=== PATIENT | female | born 1935 | race Caucasian/White ===

== ENCOUNTER → 2019-05-01 08:37 | Outpatient (CLI) | payer MEDICARE, OTHER ==
[~2019-05-01 08:37] MED LIST: ACETAMINOPHEN500 M1 PO; ASPERCREME 5 OZ5 OZ TOPICAL; COLACE100 MG PO; COZAAR50 MG PO; FLORAJEN3 CAPS460 MG PO; IPRAT-ALBUT 0.5-3 ML UPD; K-DUR20 MEQ PO; LEVO-T88 MCG PO; LINZESS145 MCG PO; MAG-OX 400 MG400 MG PO; MEGESTROL; MILK OF MAGNESI30 ML PO; NORVASC5 MG PO; OS-CAL500 MG PO; POTASSIUM CL ER 10 M PO; SENNA LAXATIVE8.6 MG PO; VIBRAMYCIN 100100 MG PO
[2019-05-04 12:55] VITALS: BMI 18.7
== END | disposition home or self-care (01) ==
LOC: D.CT 08:37
PROVIDERS: ATTEND Family Medicine
DX: R91.8 Other nonspecific abnormal finding of lung field (principal)

== ENCOUNTER 2019-05-01 18:08 | Inpatient (IN) | payer MEDICARE, OTHER ==
[~2019-05-01] VITALS: Ht 162.6 cm; Wt 50.1 kg
--- NOTE | 2019-05-01 18:54 | NUR ---
PT HERE AFTER HAVING OUTPATIENT CT SCAN THIS MORNING WITH ABNORMAL RESULT. PT HAS NO COMPLAINT AT THIS TIME.
[2019-05-01 19:00] VITALS: BP 166/80
[2019-05-01 19:24] LABS: BASOPHILS 0.4 % (0-2); EOSINOPHILS 1.2 % (0-7); HEMATOCRIT 29.9 % (36.0-48.0); HEMOGLOBIN 9.8 g/dL (12-16); IMMATURE GRANULOCYTES 0.3 % (0-5); LYMPHOCYTES 17.6 % (15-50); MCH 27.6 pg (26.0-34.0); MCHC 32.8 g/dL (31.0-37.0); MCV 84.2 fL (80.0-100.0); MONOCYTES 10.9 % (2-11); NEUTROPHILS 69.6 % (40-80); PLATELET COUNT 429 10x3/uL (130-400); RBC 3.55 10x6/uL (4.00-5.40); RDW 13.9 % (11.5-14.5); WBC 11.2 10x3/uL (4.8-10.8)
[2019-05-01 19:36] LABS: APTT 41.1 SECONDS (22.8-39.4); INR 1.05 (0.85-1.17); PROTIME 13.2 SECONDS (11.6-15.0)
[2019-05-01 19:46] LABS: ALBUMIN 2.7 g/dL (3.4-5.0); ALKALINE PHOSPHATASE 113 U/L (46-116); ALT (SGPT) 15 U/L (10-68); BILIRUBIN - TOTAL 0.17 mg/dL (0.2-1.3); CALC OSMOLALITY 267 mosm/kg (275-300); CALCIUM 8.3 mg/dL (8.5-10.1); CARBON DIOXIDE 27.8 mmol/L (21.0-32.0); CHLORIDE - SERUM 97 mmol/L (98-107); CREATININE - SERUM 0.8 mg/dL (0.6-1.3); GLUCOSE 121 mg/dL (74-106); POTASSIUM - SERUM 3.6 mmol/L (3.5-5.1); PROTEIN - SERUM 7.3 g/dL (6.4-8.2); SODIUM 133 mmol/L (136-145); UREA NITROGEN 14 mg/dL (7-18); eGFR NON AFRICAN AMERICAN 72 mL/min (90-120)
[2019-05-01 19:55] VITALS: BP 176/77
[2019-05-01 19:58] LABS: CKMB 0.7 U/L (0.0-3.6); CREATINE KINASE 27 UL (21-215); TROPONIN-I 0.018 ng/mL (0.000-0.060)
--- NOTE | 2019-05-01 20:13 | NUR ---
RASHID CONTACT INFORMATION: KALYANI GUZMÁN [phone]
--- NOTE | 2019-05-01 20:23 | NUR ---
UNABLE TO URINATE AT THIS TIME. PROVIDED GATORADE WILL CHECK AGAIN FOR URINE.
--- NOTE | 2019-05-01 21:35 | NUR ---
ADMITTED TO ROOM FROM ER ALERT, PEROIDS OF CONFUSION, ORIENTIATED TO ROOM FALL PRECAUTIONS IN PLACE, SEE SHIFT ASSESSMENT, CALL LIGHT IN REACH
[2019-05-01 22:30] VITALS: BP 148/66
[2019-05-02] MEDS ORDERED: LEVO-T88 MCG PO (01:27)
[2019-05-02] MEDS ORDERED: COZAAR50 MG PO (01:30)
[2019-05-02] MEDS ORDERED: MEGESTROL (01:30)
[2019-05-02] MEDS ORDERED: LINZESS145 MCG PO (01:32)
[2019-05-02] MEDS ORDERED: NORVASC5 MG PO (01:32)
[2019-05-02] MEDS ORDERED: POTASSIUM CL ER 10 M PO (01:33)
[2019-05-02] MEDS ORDERED: MAG-OX 400 MG400 MG PO (01:36)
[2019-05-02] MEDS ORDERED: MILK OF MAGNESI30 ML PO (01:37)
[2019-05-02] MEDS ORDERED: SENNA LAXATIVE8.6 MG PO (01:38)
[2019-05-02] MEDS ORDERED: ACETAMINOPHEN500 M1 PO (01:40)
[2019-05-02] MEDS ORDERED: ASPERCREME 5 OZ5 OZ TOPICAL (01:43)
[2019-05-02] MEDS ORDERED: OS-CAL500 MG PO (01:47)
[2019-05-02] MEDS ORDERED: COLACE100 MG PO (01:48)
[2019-05-02 01:49] VITALS: BP 152/61
[2019-05-02 03:30] LABS: APPEARANCE CLEAR (CLEAR); BILIRUBIN NEGATIVE (NEGATIVE); COLOR YELLOW (YELLOW); GLUCOSE NEGATIVE (NEGATIVE); KETONE NEGATIVE (NEGATIVE); NITRITE NEGATIVE (NEGATIVE); PROTEIN NEGATIVE (NEGATIVE); SPECIFIC GRAVITY 1.005 (1.005-1.020); UROBILINOGEN NORMAL (NORMAL)
[2019-05-02 04:00] VITALS: BP 154/76
[2019-05-02 06:30] LABS: BASOPHILS 0.3 % (0-2); EOSINOPHILS 1.3 % (0-7); HEMATOCRIT 26.5 % (36.0-48.0); HEMOGLOBIN 8.5 g/dL (12-16); IMMATURE GRANULOCYTES 0.2 % (0-5); LYMPHOCYTES 19.2 % (15-50); MCH 26.9 pg (26.0-34.0); MCHC 32.1 g/dL (31.0-37.0); MCV 83.9 fL (80.0-100.0); MEAN PLATELET VOLUME 9.2 fL (7.4-10.4); MONOCYTES 10.2 % (2-11); NEUTROPHILS 68.8 % (40-80); PLATELET COUNT 402 10x3/uL (130-400); RBC 3.16 10x6/uL (4.00-5.40); RDW 14.1 % (11.5-14.5); WBC 10.3 10x3/uL (4.8-10.8)
[2019-05-02 06:54] LABS: CALC OSMOLALITY 263 mosm/kg (275-300); CALCIUM 8.2 mg/dL (8.5-10.1); CARBON DIOXIDE 25.3 mmol/L (21.0-32.0); CHLORIDE - SERUM 98 mmol/L (98-107); CREATININE - SERUM 0.7 mg/dL (0.6-1.3); GLUCOSE 105 mg/dL (74-106); SODIUM 132 mmol/L (136-145); UREA NITROGEN 11 mg/dL (7-18); eGFR NON AFRICAN AMERICAN 85 mL/min (90-120)
[2019-05-02 08:00] VITALS: BP 166/66
[2019-05-02 12:04] VITALS: BP 175/73
--- NOTE | 2019-05-02 15:30 | NUR ---
RETURNED TO ROOM VIA BED FROM SURGERY. PT IS A/A/OX3. CHEST TUBE INTACT TO LEFT UNDERARM. SMALL AMT THICK BEIGE COLORED DRAINAGE IN TUBE. VS STABLE.
--- NOTE | 2019-05-02 16:13 | NUR ---
CT TUBE INTACT. CALL LIGHT IN REACH. ISOLATION CONT. CALL LIGHT IN REACH. WILL MONITOR NEEDS.
[2019-05-02 17:14] LABS: PROTEIN - BODY FLUID 1.6 G/DL
--- NOTE | 2019-05-02 18:28 | NUR ---
ATTEMPTED TO RUN IN 500CC OF 2.5% DEFLEX WITH 1000 UNITS HEPARIN. ONLY 100 CC RAN IN AND THEN STOPPED DUE TO PT C/O INCREASED PAIN AND STOPPED INFUSING. PAGE PUT IN TO SHANEL TO INFORM HER.
[2019-05-02 20:00] VITALS: BP 151/63
--- NOTE | 2019-05-02 20:00 | NUR ---
ALERT RESTING IN BED, CHEST TUBE TO LEFT AXILLARY DRAINING THICK GAYTAN FLUID, DRESSING INTACT, DENIES PAIN OR NEEDS, SEE SHIFT ASSESSMENT CALL LIGHT IN REACH, FALL PRECAUTIONS IN PLACE
[2019-05-03] VITALS: BP 146/66
[2019-05-03 05:40] LABS: BASOPHILS 0.3 % (0-2); EOSINOPHILS 0.6 % (0-7); HEMATOCRIT 26.5 % (36.0-48.0); HEMOGLOBIN 8.6 g/dL (12-16); IMMATURE GRANULOCYTES 0.3 % (0-5); LYMPHOCYTES 17.9 % (15-50); MCHC 32.5 g/dL (31.0-37.0); MCV 83.3 fL (80.0-100.0); MEAN PLATELET VOLUME 9.3 fL (7.4-10.4); MONOCYTES 9.8 % (2-11); NEUTROPHILS 71.1 % (40-80); PLATELET COUNT 388 10x3/uL (130-400); RBC 3.18 10x6/uL (4.00-5.40)
[2019-05-03 05:47] LABS: ALBUMIN 2.1 g/dL (3.4-5.0); ALKALINE PHOSPHATASE 84 U/L (46-116); ALT (SGPT) 14 U/L (10-68); BILIRUBIN - TOTAL 0.23 mg/dL (0.2-1.3); CALC OSMOLALITY 266 mosm/kg (275-300); CALCIUM 7.7 mg/dL (8.5-10.1); CARBON DIOXIDE 26.3 mmol/L (21.0-32.0); CHLORIDE - SERUM 99 mmol/L (98-107); CREATININE - SERUM 0.7 mg/dL (0.6-1.3); GLUCOSE 102 mg/dL (74-106); PROTEIN - SERUM 6.6 g/dL (6.4-8.2); SODIUM 134 mmol/L (136-145); UREA NITROGEN 11 mg/dL (7-18); eGFR NON AFRICAN AMERICAN 85 mL/min (90-120)
[2019-05-03 06:21] LABS: POTASSIUM - SERUM 2.8 mmol/L (3.5-5.1)
--- NOTE | 2019-05-03 06:34 | NUR ---
ABNORMAl LAB POTASSIUM 2.8 CALLED TO JENNIFER WITH DR CARRERA OFFICE STATES WILL TEXT TO DR CARRERA NOW
[2019-05-03 09:51] VITALS: BP 153/70
[2019-05-03 13:10] LABS: FUNGUS STAIN Final report (())
[2019-05-03 13:57] VITALS: BP 184/79
[2019-05-03 15:10] LABS: AFB SPECIMEN PROCESSING Concentration (())
[2019-05-03 17:30] VITALS: BP 156/81
--- NOTE | 2019-05-03 19:10 | NUR ---
BEDSIDE REPORT RECEIVED FROM DAY SHIFT, PT CARE ASSUMED. INTRODUCED SELF AND WROTE NAME ON BOARD, PT AWAKE AND ALERT, ON BEDSIDE COMMODE AND ASSISTED BACK TO BED WITH VENEER SAMPLE MAKER. DENIES ANY NEEDS AT THIS TIME. BED IN LOWEST POSITION, SR X2, CALL LIGHT WITHIN REACH. WILL CONTINUE TO MONITOR.
[2019-05-03 20:00] VITALS: BP 155/68
[2019-05-04] VITALS: BP 141/68
[2019-05-04 04:00] VITALS: BP 136/66
[2019-05-04 06:57] LABS: BASOPHILS 0.2 % (0-2); EOSINOPHILS 0.6 % (0-7); HEMATOCRIT 26.6 % (36.0-48.0); HEMOGLOBIN 8.5 g/dL (12-16); IMMATURE GRANULOCYTES 0.1 % (0-5); LYMPHOCYTES 18.4 % (15-50); MCH 26.8 pg (26.0-34.0); MCV 83.9 fL (80.0-100.0); MEAN PLATELET VOLUME 9.4 fL (7.4-10.4); MONOCYTES 11.9 % (2-11); NEUTROPHILS 68.8 % (40-80); PLATELET COUNT 381 10x3/uL (130-400); RBC 3.17 10x6/uL (4.00-5.40); RDW 14.3 % (11.5-14.5); WBC 8.8 10x3/uL (4.8-10.8)
[2019-05-04 07:16] LABS: ALBUMIN 2.2 g/dL (3.4-5.0); ALKALINE PHOSPHATASE 83 U/L (46-116); ALT (SGPT) 11 U/L (10-68); BILIRUBIN - TOTAL 0.31 mg/dL (0.2-1.3); CALC OSMOLALITY 268 mosm/kg (275-300); CALCIUM 7.9 mg/dL (8.5-10.1); CARBON DIOXIDE 25.8 mmol/L (21.0-32.0); CHLORIDE - SERUM 103 mmol/L (98-107); CREATININE - SERUM 0.7 mg/dL (0.6-1.3); GLUCOSE 108 mg/dL (74-106); MAGNESIUM - SERUM 1.5 mg/dL (1.8-2.4); PHOSPHOROUS 3.1 mg/dL (2.5-4.9); PROTEIN - SERUM 6.6 g/dL (6.4-8.2); SODIUM 134 mmol/L (136-145); UREA NITROGEN 12 mg/dL (7-18); eGFR NON AFRICAN AMERICAN 85 mL/min (90-120)
[2019-05-04 07:19] LABS: POTASSIUM - SERUM 2.8 mmol/L (3.5-5.1)
--- NOTE | 2019-05-04 07:25 | NUR ---
ROUNDING DONE WITH PATIENT IN AIRBORNE ISOLATION. LEFT POSTERIOR CHEST TUBE SEEN TO WALL WITH NO SUCTION ON. I REVIEWED THE CHART AND DO NOT SEE ANY ORDER FOR SUCTION. CALL PLACED TO OLE MANLEY RN IN IR FOR GUIDANCE. ON ROOM AIR. RIGHT WRIST PIV SEEN WITH 1/2 NS INFUSING AT 20. PATIENT IS WANTING HER HOME MEDS. WILL CALL DR KURTZ AND SEE ABOUT RE-STARTING THEM. ON EP, K+ IS 2.8, WILL COVER WITH ORAL SUPPLEMENTS. OLE TO CALL ME BACK AND STATE HE IS NOT HYDROELECTRIC PLANT ELECTRICIAN THIS AM. HE GAVE ME LILO'S NUMBER TO CALL [phone]. I CALLED HER AND SHE IS GOING TO FIND OUT AND LET ME KNOW.
--- NOTE | 2019-05-04 07:58 | NUR ---
PATEL, RN IN WITH MYSELF TALKING TO PATIENT AND SPOUSE R/T HOME MEDS PATEL HAD HER YESTERDAY. THEY ARE TOLD THAT DR MENDOSA WANTED TO GIVE HER ANOTHER DAY OF REST FROM THE [facility] BEFORE STARTING HOME MEDS. IS WANTING A SWALLOW EVAL DONE HE THINKS SHE HAS PROBLEMS SWALLOWING IN THE PAST, BUT HE WANTS TO FEED HER BREAKFAST.
[2019-05-04 08:00] VITALS: BP 161/68
--- NOTE | 2019-05-04 09:41 | MORECARE ---
CASE MANAGEMENT DISCHARGE SUMMARY PATIENT: CHE GUZMÁN UNIT: [id number] ADM DATE: 05/01/19 AGE: 83 : 35 SEX: F ROOM/BED: D.2101 AUTHOR: DEXTER ESCALERA PHYSICIAN: REFERRING PHYSICIAN: KALEE NICOLE MD DATE OF SERVICE: 05/04/19 Discharge Plan Patient Name: CHE GUZMÁN Facility: [facility]:[place] : 1935 Planned Disposition: Anticipated Discharge Date: Discharge Date: Expected LOS: Initial Reviewer: [id number] Initial Review Date: 05/04/2019 Generated: 05/04/19 10:41 am Comments DCP- Discharge Planning Updated by [id number]: Arlyn Goodrich on 05/04/19 8:[address] Patient Name: CHE GUZMÁN Admission Status: ER Accout number: [id number] Admission Date: 05-01-2019 : 1935 Admission Diagnosis: Attending: KALEE NICOLE Current LOS: 3 Anticipated DC Date: Planned Disposition: Primary Insurance: MEDICARE A & B Discharge Planning Comments: PATIENT IS FROM [facility] WHERE SHE IS A RESIDENT. Guest Relations Representative: Arlyn Goodrich Patient Name: CHE GUZMÁN Page [phone] at 0941 All edits/amendments must be made on the electronic document DICTATION DATE: 05/04/19939 METAPHYSICIAN: ANAIS 05/04/19939 RPT#: [id number] DC DATE: STATUS: ADM IN [facility] [address] [place] [address] END OF REPORT
[2019-05-04 12:00] VITALS: BP 157/70
[2019-05-04 12:55] VITALS: Ht 162.6 cm; Wt 50.1 kg
--- NOTE | 2019-05-04 15:00 | NUR ---
BEDSIDE SWALLOW EVALUYATION DONE.
--- NOTE | 2019-05-04 15:45 | NUR ---
CALLED TO ROOM PER PATIENT WITH REQUEST OF TURNING AIR ON". I LOWERED THE TEMP TO 70 AND TRIED TO EXPLAIN ABOUT NOT BEING ABLE TO LEAVE THE DOORS OPEN R/T AIRBORNE ISOLATION. SHE IS UPSET WITH THIS.
[2019-05-04 16:00] VITALS: BP 174/73
--- NOTE | 2019-05-04 16:50 | NUR ---
EVENING ROUNDS COMPLETE, PT SITTING UP IN BED, AAO X4. NO SIGNS OF DISTRESS. PT DENIES ANY PAIN AT THIS TIME. CL IN REACH, BED IN LOWEST POSITION. CONT WITH POC.
--- NOTE | 2019-05-04 18:15 | NUR ---
RESP IN ROOM FOR UPDRAFT TREATMENT. PATIENT DENIES NEEDS AT THIS TIME. WILL CONTINUE TO MONITOR. STILL IN AIRBORNE ISOLATION.
--- NOTE | 2019-05-04 18:37 | NUR ---
RE-DRAW OF POTSSIUM WITH RESULT OF 3.7.
[2019-05-04 20:00] VITALS: BP 150/62
[2019-05-05] VITALS: BP 154/62
[2019-05-05 04:30] VITALS: BP 142/68
--- NOTE | 2019-05-05 06:17 | NUR ---
PT C/O PAIN AT SITE OF CHEST TUBE. WHEN OFFERED PRN PAIN MED, PT DENIED PAIN OR NEED FOR MEDICATION.
[2019-05-05 06:40] LABS: ANION GAP 13.2 mmol/L (8-16); CALCIUM 8.7 mg/dL (8.5-10.1); CARBON DIOXIDE 23.6 mmol/L (21.0-32.0); CREATININE - SERUM 0.8 mg/dL (0.6-1.3); MAGNESIUM - SERUM 1.5 mg/dL (1.8-2.4); PHOSPHOROUS 2.6 mg/dL (2.5-4.9); POTASSIUM - SERUM 3.8 mmol/L (3.5-5.1)
[2019-05-05 06:54] LABS: BASOPHILS 0.4 % (0-2); EOSINOPHILS 1.7 % (0-7); HEMATOCRIT 30.3 % (36.0-48.0); HEMOGLOBIN 9.5 g/dL (12-16); IMMATURE GRANULOCYTES 0.2 % (0-5); LYMPHOCYTES 25.4 % (15-50); MCH 27.5 pg (26.0-34.0); MCHC 31.4 g/dL (31.0-37.0); MCV 87.6 fL (80.0-100.0); MEAN PLATELET VOLUME 9.6 fL (7.4-10.4); MONOCYTES 10.6 % (2-11); NEUTROPHILS 61.7 % (40-80); PLATELET COUNT 448 10x3/uL (130-400); RBC 3.46 10x6/uL (4.00-5.40); RDW 14.4 % (11.5-14.5); WBC 9.6 10x3/uL (4.8-10.8)
--- NOTE | 2019-05-05 07:08 | NUR ---
ROUNDING DONE WITH PATIENT BEING GIVEN MAG OX 400 MG FOR EP, MAG 1.5. K+ IS 3.8. ON ROOM AIR. LEFT POSTERIOR IR CHEST TUBE SEEN AT 20 CM LOW SUCTION. NO AIR LEAK SEEN. RIGHT WRIST PIV WITH 1/2 NS INFUSING AT 20 CC/HR. IN AIRBORNE ISOLATION STILL. SPOUSE HERE AND UPDATED TO LAST NIGHT R/T PATIENT THINKING SHE HAD SURGERY YESTERDAY AND REFUSING PAIN MEDICATION WHEN SHE ASKED FOR IT AND IT WAS BROUGHT IN.
--- NOTE | 2019-05-05 07:47 | NUR ---
REVIEWING THE RESP CULTURES AND GRAM STAIN EVERYTHING IS SHOWING FEW COLONIES OF GROWTH CONSISTENT WITH NORMAL RESP JD. I CALLED AGGIE PIÑA IN INFECTION CONTROL AND SHE IS OUT OF THE OFFICE TILL 05/09. I LEFT WORD WITH ROSETTA CRUZ [facility] TO PLEASE CALL ME.
[2019-05-05 08:20] VITALS: BP 171/74
--- NOTE | 2019-05-05 08:53 | NUR ---
ANTHONY FROM INFECTION CONTR[facility] TO CALL AND IS GOING TO TALK TO THE SPOUSE AND PATIENT ON STILL HAVING TO WAIT ON RESULTS. WE ARE HOPING THAT SHE CAN DROP TO DROPLET AND BE ABLE TO LEAVE THE DOOR OPEN.
--- NOTE | 2019-05-05 11:55 | NUR ---
Educated the patient and on the need Airborne Isolation, advised will follow with lab and Pulmonology on pending TB test results.
--- NOTE | 2019-05-05 11:58 | NUR ---
DR KURTZ IN ROOM AT THIS TIME TO SEE PATIENT.
[2019-05-05 12:13] VITALS: BP 184/87
--- NOTE | 2019-05-05 12:14 | NUR ---
ANTHONY WITH INFECTION CONTROL HERE TO TELL ME THAT SHE HAS TALKED TO DR MENDOSA AND PATIENT CAN NOW BE IN DROPLET ISOLATION.
--- NOTE | 2019-05-05 14:46 | NUR ---
OLE MANLEY RN WITH IR IN TO SEE PATIENT. NO OUTPUT IN CHEST TUBE CANISTER. HE AND I BOTH CHECKED AND SUCTION IS PATENT AND NO AIR LEAK.
[2019-05-05 16:08] LABS: AFB SPECIMEN PROCESSING Concentration (())
[2019-05-05 16:14] VITALS: BP 187/75
--- NOTE | 2019-05-05 19:00 | NUR ---
EVENING ROUNDS COMPLETE, PT LAYING IN BED. NO SIGNS OF DISTRESS. PT DENIES ANY PAIN AT THIS TIME. AAOX4, VSS. CL IN REACH, BED IN LOWEST POSITION. CONT WITH POC.
[2019-05-05 20:00] VITALS: BP 148/64
[2019-05-06] VITALS: BP 169/77
[2019-05-06 04:00] VITALS: BP 172/76
[2019-05-06 05:12] LABS: BASOPHILS 0.7 % (0-2); EOSINOPHILS 4.6 % (0-7); HEMATOCRIT 30.1 % (36.0-48.0); HEMOGLOBIN 9.1 g/dL (12-16); IMMATURE GRANULOCYTES 0.1 % (0-5); LYMPHOCYTES 33.8 % (15-50); MCH 26.8 pg (26.0-34.0); MCHC 30.2 g/dL (31.0-37.0); MCV 88.5 fL (80.0-100.0); MEAN PLATELET VOLUME 9.4 fL (7.4-10.4); MONOCYTES 12.2 % (2-11); NEUTROPHILS 48.6 % (40-80); PLATELET COUNT 416 10x3/uL (130-400); RDW 14.8 % (11.5-14.5)
[2019-05-06 05:50] LABS: CALC OSMOLALITY 273 mosm/kg (275-300); CALCIUM 8.1 mg/dL (8.5-10.1); CARBON DIOXIDE 23.6 mmol/L (21.0-32.0); CHLORIDE - SERUM 103 mmol/L (98-107); CREATININE - SERUM 0.7 mg/dL (0.6-1.3); GLUCOSE 109 mg/dL (74-106); MAGNESIUM - SERUM 1.8 mg/dL (1.8-2.4); PHOSPHOROUS 3.1 mg/dL (2.5-4.9); SODIUM 136 mmol/L (136-145); THYROID STIMULATING HORMONE 2.42 uIU/mL (0.36-3.74); UREA NITROGEN 14 mg/dL (7-18); eGFR NON AFRICAN AMERICAN 85 mL/min (90-120)
[2019-05-06 05:57] LABS: POTASSIUM - SERUM 4.4 mmol/L (3.5-5.1)
--- NOTE | 2019-05-06 07:30 | NUR ---
A/A/OX4. DENIES ANY PAIN OR PROBLEMS AT THIS TIME AND VOICES NOT REQUESTS. SITTING UP IN BED TALKING WITH HER . ASSESSMENT COMPLETED. IV PATENT TO RIGHT HAND WITHOUT REDNESS OR EDEMA. WILL CONTINUE POC.
--- NOTE | 2019-05-06 10:12 | NUR ---
PULLED IV OUT TRYING TO GET UP TO BSC. RESTARTED IN RIGHT INNER FOREARM WITH 22 G X 2 ATTEMPTS. PT TOLERATED WELL.
--- NOTE | 2019-05-06 10:51 | NUR ---
I have reviewed this patient and I concur with the Shift Assessment completed by the Licensed Practical Nurse today this shift.
[2019-05-06 12:22] VITALS: BP 174/73
[2019-05-06 16:30] VITALS: BP 154/75
[2019-05-06 20:00] VITALS: BP 136/68
[2019-05-07] VITALS: BP 131/64
[2019-05-07 04:00] VITALS: BP 164/73
[2019-05-07 08:36] VITALS: BP 175/67
[2019-05-07 12:17] VITALS: BP 154/68
[2019-05-07 16:45] VITALS: BP 178/71
--- NOTE | 2019-05-07 16:50 | NUR ---
ALERT AND ORIENTED X4. SITTING UP IN BED EATING. [place]. CHECK DEPENDS FOR INCONTINENCE, DEPENDS DRY. DENIES ANY NEEDS AT THIS TIME. LT CHEST TUBE FREE FROM LEAKS. CONTINUE PLAN OF CARE AND SAFETY PRECAUTIONS.
--- NOTE | 2019-05-07 19:07 | NUR ---
RECIEVED BEDSIDE REPOT. UP IN BED WITH EYES OPEN AND TV ON. IV TO RIGHT FA SL.. REMAINS IN DROPLET ISOLATION. CHEST TUBE TO LEFT SIDE. DSG CDI. INCONTINENT OF URINE. PERIAREA ELMER. DENIES ANY NEEDS AT THIS TIME.
[2019-05-07 20:00] VITALS: BP 148/68
[2019-05-07 21:34] LABS: CREATININE - SERUM 0.7 mg/dL (0.6-1.3); VANCOMYCIN - TROUGH 14.8 ug/mL (10.0-20.0)
[2019-05-08] VITALS: BP 138/67
[2019-05-08 04:30] VITALS: BP 132/72
--- NOTE | 2019-05-08 04:46 | NUR ---
IV LEAKIND. STOPPED AND D/C'S. NO REDNESS OR SWELLING TO SITE. RESTARTED TO LEFT FA WITH 22 GA ATTEMPTS X1.
--- NOTE | 2019-05-08 07:25 | NUR ---
REPORT RECIEVED. PT SITTING UP IN BED. PT HAS A CHEST TUBE TO THE LEFT SIDE DRAINING BLOOD. SHE HAS A L FA PIV. RR EVEN AND UNLABORED. NO DISTRESS NOTED. BED LOCKED AND IN LOWEST POSITION, CALL LIGHT WITHIN REACH. WILL CTM
[2019-05-08 08:08] VITALS: BP 153/69
--- NOTE | 2019-05-08 13:43 | NUR ---
Nutrition Follow-up: reports increased PO intake but overall eating <50% of meals. Drinking 1-2 Ensure/day. Diet: Regular, Ensure TID, ice cream with meals Wt: 110# Last BM: 05/07 per Labs noted: Ca 8.1, Glu 109 Meds noted: Milk of Magnesia, KDur Continue current diet/supplement as tolerated. [place] food preferences. RD following.
[2019-05-08 16:13] VITALS: BP 174/79
--- NOTE | 2019-05-08 17:28 | NUR ---
I have reviewed this patient and I concur with the Shift Assessment completed by the Licensed Practical Nurse today this shift.
--- NOTE | 2019-05-08 19:12 | NUR ---
RECIEVEDE BEDSIDE REPORT. UP IN BED WITH EYES CLOSED. EASILY AROUSE TO VERBAL STIMULI. C/O BEING SLEEPY. IV TO LEFT FA WITH DSG CDI. NS INFUSING AT 30CC/HR. NO REDNESS OR SWELLING TO SITE.CHEST TUBE TO LEFT SIDE. DENIES ANY NEEDS AT THIS TIME.
[2019-05-08 20:00] VITALS: BP 159/64
[2019-05-08 21:41] VITALS: BP 159/64
[2019-05-09 00:30] VITALS: BP 160/58
[2019-05-09 07:35] VITALS: BP 161/75
[2019-05-09 11:07] VITALS: BP 163/66
[2019-05-09 15:15] VITALS: BP 129/60
--- NOTE | 2019-05-09 15:30 | NUR ---
ALERT AND ORIENTED X4. SITTING UP IN BED. PHYSICAL THERAPY ASSIST OOB AMBULATE 28 STEPS IN ROOM WITH WALKER. BED BATH AND LINEN CHANGE COMPLETE. OINTMENT APPLIED TO MAK AREA. DENIES ANY NEEDS AT THIS TIME. CONTINUE PLAN OF CARE AND SAFETY PRECAUTIONS.
--- NOTE | 2019-05-09 19:35 | NUR ---
BEDSIDE REPORT RECEIVED FROM DAY SHIFT, PT CARE ASSUMED. INTRODUCED SELF AND WROTE NAME ON BOARD. PT SITTING UP IN BED WATCHING TV, AAOX4. CALMOSEPTINE APPLIED TO EXCORIATED MAK AREA. DENIES ANY OTHER NEEDS AT THIS TIME. BED IN LOWEST POSITION, SR X2, CALL LIGHT WITHIN REACH. WILL CONTINUE TO MONITOR.
[2019-05-09 20:00] VITALS: BP 157/63
--- NOTE | 2019-05-09 20:31 | NUR ---
PT LYING IN BED WITH EYES CLOSED, RR EVEN AND NONLABORED, NO S/S OF DISTRESS, AROUSES EASILY TO VOICE. NIGHT TIME MEDS ADMINISTERED, PER ORDER. DENIES ANY OTHER NEEDS AT THIS TIME. BED IN LOWEST POSITION, SR X1, CALL LIGHT WITHIN REACH. WILL CONTINUE TO MONITOR.
[2019-05-10] VITALS: BP 160/72
[2019-05-10 04:00] VITALS: BP 140/60
[2019-05-10 08:00] VITALS: BP 146/61
[2019-05-10 13:59] VITALS: BP 149/64
[2019-05-10 17:19] VITALS: BP 159/69
--- NOTE | 2019-05-10 19:13 | NUR ---
RECIEVED BEDSIDE REPORT. LYING IN BED WITH EYES OPEN. ALERT AND ORIETNED X4. REQUIRES ASSIST TO TRANSFER OOB. IV TO LEFT FA SL.. DSG TO LEFT UPPER BACK CDI. DENIES ANY NEEDS AT THIS TIME. WILL CONT POC.
[2019-05-10 20:00] VITALS: BP 165/65
[2019-05-11] VITALS: BP 163/69
[2019-05-11 04:00] VITALS: BP 177/74
--- NOTE | 2019-05-11 09:38 | MORECARE ---
CASE MANAGEMENT DISCHARGE SUMMARY PATIENT: CHE GUZMÁN UNIT: [id number] ADM DATE: 05/01/19 AGE: 83 : 35 SEX: F ROOM/BED: D.2101 AUTHOR: DEXTER ESCALERA PHYSICIAN: REFERRING PHYSICIAN: KAYLA KURTZ MD DATE OF SERVICE: 05/11/19 Discharge Plan Patient Name: CHE GUZMÁN Facility: [facility]:[place] : 1935 Planned Disposition: Anticipated Discharge Date: Discharge Date: Expected LOS: Initial Reviewer: [id number] Initial Review Date: 05/04/2019 Generated: 05/11/19 10:37 am DCP- Discharge Planning Updated by [id number]: Arlyn Goodrich on 05/04/19 8:[address] Patient Name: CHE GUZMÁN Admission Status: ER Accout number: [id number] Admission Date: 05-01-2019 : 1935 Admission Diagnosis: Attending: KALEE NICOLE Current LOS: 3 Anticipated DC Date: Planned Disposition: Primary Insurance: MEDICARE A & B Discharge Planning Comments: PATIENT IS FROM [facility] WHERE SHE IS A RESIDENT. Solar Panel Installation Supervisor: Arlyn Goodrich External Providers External Provider: [facility] Next Contact Date: 05/11/2019 Service Request Date: Service Type: Resolution: Reviewer: Comments: Last DP export: 05/04/19 8:41 a Patient Name: CHE GUZMÁN Page [phone] at 0938 All edits/amendments must be made on the electronic document DICTATION DATE: 05/11/19936 ENVIRONMENTAL JOURNALIST: DM 05/11/19936 RPT#: [id number] DC DATE: STATUS: ADM IN [facility] [address] [place] [address] END OF REPORT
[2019-05-11 09:45] VITALS: BP 166/69
--- NOTE | 2019-05-11 09:53 | MORECARE ---
CASE MANAGEMENT DISCHARGE SUMMARY PATIENT: CHE GUZMÁN UNIT: [id number] ADM DATE: 05/01/19 AGE: 83 : 35 SEX: F ROOM/BED: D.2101 AUTHOR: LALI,DOC PHYSICIAN: REFERRING PHYSICIAN: KAYLA KURTZ MD DATE OF SERVICE: 05/11/19 Discharge Plan Patient Name: CHE GUZMÁN Facility: [facility]:[place] : 1935 Planned Disposition: Anticipated Discharge Date: Discharge Date: Expected LOS: Initial Reviewer: [email or web address] Initial Review Date: 05/04/2019 Generated: 05/11/19 10:53 am Comments DCP- Discharge Planning Updated by [id number]: Marlon Rollins on 05/11/19 8:[address] Patient Name: CHE GUZMÁN Encounter No: [id number] : 1935 Primary Insurance: MEDICARE A & B Anticipated DC Date: Planned Disposition: HALF-WAY FACILITY, [facility] External Planned Provider: [facility], [employer] MEDICAID BED DCP follow-up note: CM SPOKE TO BEDSIDE NURSE WHO NOTIFIED CM THAT PT'S PLAN IS TO DISCHARGE TODAY BACK TO [facility] WHERE SHE LIVES. CM MET WITH PT IN ROOM WHO REPORTS THE DOCTORS ARE SUPPOSED TO DISCHARGE HER HOME TO [facility] WHERE SHE LIVES. PT REPORTS ABILITY TO SIT FOR VAN TRANSPORT. PT REPORTS HER IS AWARE AND SHE NEEDS NO ASSISTANCE IN NOTIFYING FAMILY. IMPORTANT MESSAGE FROM MEDICARE PROVIDED AND EXPLAINED. CM FAXED REFERRAL INFORMATION TO [facility] AT [phone]. CM CALLED AND LEFT DETAILED MESSAGE FOR REBA AT [facility], . FOR DISCHARGE, FAX DISCHARGE INFORMATION TO [facility] AT [phone]. CALL NURSE REPORT TO [facility] AT [phone]. [facility] TO ARRANGE TRANSPORT FOR RETURN TODAY. LEYDI Felix DCP- Discharge Planning Updated by [id number]: Arlyn Goodrich on 05/04/19 8:[address] Patient Name: CHE GUZMÁN Admission Status: ER Accout number: [id number] Admission Date: 05-01-2019 : 1935 Admission Diagnosis: Attending: KALEE NICOLE Current LOS: 3 Anticipated DC Date: Planned Disposition: Primary Insurance: MEDICARE A & B Discharge Planning Comments: PATIENT IS FROM [facility] WHERE SHE IS A RESIDENT. Anthropological Linguist: Arlyn Goodrich Coverage Notice Reviewer: [id number] Gi Rollins Notice Issued Date-Time: 05/11/2019 9:35 Notice Type: IM Discharge Notice Notice Delivered To: Patient Relationship to Patient: Hack Driver Name: Delivery Method: HAND - Hand Delivered Muriel Days: Prior Verbal Notification: Recipient Understood Notice: Yes Recipient Signature: Yes Med Rec Note Co-signed by Attending: Coverage Notice Comment: Last DP export: 05/11/19 8:38 a Patient Name: CHE GUZMÁN Page [phone] at 0953 All edits/amendments must be made on the electronic document DICTATION DATE: 05/11/19952 BUSINESS ANALYST ECOMMERCE: ANAIS 05/11/19 0953 RPT#: [id number] DC DATE: STATUS: ADM IN [facility] [address] [place] [address] END OF REPORT
[2019-05-11] MEDS ORDERED: VIBRAMYCIN 100100 MG PO (09:58)
[2019-05-11] MEDS ORDERED: IPRAT-ALBUT 0.5-3 ML UPD (09:59)
[2019-05-11] MEDS ORDERED: K-DUR20 MEQ PO (10:00)
[2019-05-11] MEDS ORDERED: FLORAJEN3 CAPS460 MG PO (10:00)
--- NOTE | 2019-05-11 10:38 | NUR ---
ASKED PT IF SHE HAS HAD HER FLU SHOT THIS YEAR, PT STATES SHE HAS NOT. PT STATES SHE DOES NOT WANT HER FLU SHOT TODAY AND THAT SHE WILL GET IT AT [facility].
--- NOTE | 2019-05-11 12:42 | MORECARE ---
CASE MANAGEMENT DISCHARGE SUMMARY PATIENT: CHE GUZMÁN UNIT: [id number] ADM DATE: 05/01/19 AGE: 83 : 35 SEX: F ROOM/BED: D.2101 AUTHOR: LALI,DOC PHYSICIAN: REFERRING PHYSICIAN: KAYLA KURTZ MD DATE OF SERVICE: 05/11/19 Discharge Plan Patient Name: CHE GUZMÁN Facility: [facility]:[place] : 1935 Planned Disposition: Custodial Facility Anticipated Discharge Date: 05/11/19 Discharge Date: Expected LOS: 10 Initial Reviewer: [id number] Initial Review Date: 05/04/2019 Generated: 05/11/19 1:41 pm Comments DCP- Discharge Planning Updated by [email or web address]: Marlon Rollins on 05/11/19 8:[address] Patient Name: CHE GUZMÁN Encounter No: [id number] : 1935 Primary Insurance: MEDICARE A & B Anticipated DC Date: Planned Disposition: [facility] FACILITY, [facility] External Planned Provider: [facility], OPERATIONS OFFICER [employer] MEDICAID BED DCP follow-up note: CM SPOKE TO BEDSIDE NURSE WHO NOTIFIED CM THAT PT'S PLAN IS TO DISCHARGE TODAY BACK TO [facility] WHERE SHE LIVES. CM MET WITH PT IN ROOM WHO REPORTS THE DOCTORS ARE SUPPOSED TO DISCHARGE HER HOME TO [facility] WHERE SHE LIVES. PT REPORTS ABILITY TO SIT FOR VAN TRANSPORT. PT REPORTS HER IS AWARE AND SHE NEEDS NO ASSISTANCE IN NOTIFYING FAMILY. IMPORTANT MESSAGE FROM MEDICARE PROVIDED AND EXPLAINED. CM FAXED REFERRAL INFORMATION TO [facility] AT [phone]. CM CALLED AND LEFT DETAILED MESSAGE FOR REBA AT [facility], . FOR DISCHARGE, FAX DISCHARGE INFORMATION TO [facility] AT [phone]. CALL NURSE REPORT TO [facility] AT [phone]. [facility] TO ARRANGE TRANSPORT FOR RETURN TODAY. LEYDI Felix DCP- Discharge Planning Updated by [id number]: Arlyn Goodrich on 05/04/19 8:[address] Patient Name: CHE GUZMÁN Admission Status: ER Accout number: [id number] Admission Date: 05-01-2019 : 1935 Admission Diagnosis: Attending: KALEE NICOLE Current LOS: 3 Anticipated DC Date: Planned Disposition: Primary Insurance: MEDICARE A & B Discharge Planning Comments: PATIENT IS FROM [facility] WHERE SHE IS A RESIDENT. Manager Finance: Arlyn Goodrich Coverage Notice Reviewer: [id number] Gi Rollins Notice Issued Date-Time: 05/11/2019 9:35 Notice Type: IM Discharge Notice Notice Delivered To: Patient Relationship to Patient: Traffic Representative Name: Delivery Method: HAND - Hand Delivered Muriel Days: Prior Verbal Notification: Recipient Understood Notice: Yes Recipient Signature: Yes Med Rec Note Co-signed by Attending: Coverage Notice Comment: Last DP export: 05/11/19 8:53 a Patient Name: CHE GUZMÁN Page [phone] at 1242 All edits/amendments must be made on the electronic document DICTATION DATE: 05/11/19 1241 SUPERINTENDENT NONSELLING: ANAIS 05/11/19 1241 RPT#: [id number] DC DATE: STATUS: ADM IN [facility] [address] [place] [address] END OF REPORT
--- NOTE | 2019-05-11 12:49 | MORECARE ---
CASE MANAGEMENT DISCHARGE SUMMARY PATIENT: CHE GUZMÁN UNIT: [id number] ADM DATE: 05/01/19 AGE: 83 : 35 SEX: F ROOM/BED: D.2101 AUTHOR: LALI,DOC PHYSICIAN: REFERRING PHYSICIAN: KAYLA KURTZ MD DATE OF SERVICE: 05/11/19 Discharge Plan Patient Name: CHE GUZMÁN Facility: [facility]:[place] : 1935 Planned Disposition: Longterm Facility Anticipated Discharge Date: 05/11/19 Discharge Date: Expected LOS: 10 Initial Reviewer: [id number] Initial Review Date: 05/04/2019 Generated: 05/11/19 1:49 pm Comments DCP- Discharge Planning Updated by [id number]: Marlon Arnold on 05/11/19 11:[address] Patient Name: CHE GUZMÁN Encounter No: [id number] : 1935 Primary Insurance: MEDICARE A & B Anticipated DC Date: Planned Disposition: PENITENTIARY FACILITY, [facility] External Planned Provider: [facility], MEDICARE REHAB BED DCP follow-up note: CM SPOKE TO BEDSIDE NURSE WHO NOTIFIED CM THAT PT'S PLAN IS TO DISCHARGE TODAY BACK TO [facility] WHERE SHE LIVES. CM MET WITH PT IN ROOM WHO REPORTS THE DOCTORS ARE SUPPOSED TO DISCHARGE HER HOME TO [facility] WHERE SHE LIVES. PT REPORTS ABILITY TO SIT FOR VAN TRANSPORT. PT REPORTS HER IS AWARE AND SHE NEEDS NO ASSISTANCE IN NOTIFYING FAMILY. IMPORTANT MESSAGE FROM MEDICARE PROVIDED AND EXPLAINED. CM FAXED REFERRAL INFORMATION TO [facility] AT [phone]. CM CALLED AND LEFT DETAILED MESSAGE FOR REBA AT [facility], . FOR DISCHARGE, FAX DISCHARGE INFORMATION TO [facility] AT [phone]. CALL NURSE REPORT TO [facility] AT [phone]. [facility] TO ARRANGE TRANSPORT FOR RETURN TODAY. Marlon Arnold, CASE MANAGEMENT Appended by Marlon Arnold on 05/11/2019 12:48 CDT: CM RECEIVED DISCHARGE ORDERS, FAXED DISCHARGE INFORMATION TO [facility] AT [phone]. CM SPOKE TO REBA WHO INFORMED CM THAT PT'S SPOUSE WAS UPSET OF THE DELAY IN DISCHARGE, CM EXPLAINED TO PT'S SPOUSE THAT CM WAS IN A MANDATORY MEETING AND WAS NOT ABLE TO NOTIFY [facility] OF THE ACTUAL DISCHARGE ORDER AND FAX DISCHARGE INFORMATION UNTIL AFTER THE MEETING THE DISCHARGE ORDER WAS PUT IN WHILE CM WAS IN THE MEETING. PT'S SPOUSE ACCEPTED CM'S APOLOGY. CALL NURSE REPORT TO [facility] AT [phone]. [facility] TO ARRANGE TRANSPORT FOR RETURN TODAY. Marlon Arnold, CASE MANAGEMENT Appended by Marlon Arnold on 05/11/2019 12:49 CDT: PATIENT IS RETURNING TO SKILLED BED AT [facility] PER REBA [facility]. MARLON ARNOLD, CASE MANAGEMENT DCP- Discharge Planning Updated by [id number]: Arlyn Goodrich on 05/04/19 8:[address] Patient Name: CHE GUZMÁN Admission Status: ER Accout number: [id number] Admission Date: 05-01-2019 : 1935 Admission Diagnosis: Attending: KALEE NICOLE Current LOS: 3 Anticipated DC Date: Planned Disposition: Primary Insurance: MEDICARE A & B Discharge Planning Comments: PATIENT IS FROM [facility] WHERE SHE IS A RESIDENT. Hims Manager: Arlyn Goodrich Coverage Notice Reviewer: [id number] - Marlon Arnold Notice Issued Date-Time: 05/11/2019 9:35 Notice Type: IM Discharge Notice Notice Delivered To: Patient Relationship to Patient: Learning Design Specialist Name: Delivery Method: HAND - Hand Delivered Muriel Days: Prior Verbal Notification: Recipient Understood Notice: Yes Recipient Signature: Yes Med Rec Note Co-signed by Attending: Coverage Notice Comment: Last DP export: 05/11/19 11:42 a Patient Name: CHE GUZMÁN Page [phone] at 1249 All edits/amendments must be made on the electronic document DICTATION DATE: 05/11/19 124 FARM ASSISTANT: ANAIS 05/11/19 1249 RPT#: [id number] DC DATE: STATUS: ADM IN [facility] [address] [place] [address] END OF REPORT
[2019-05-11 13:22] VITALS: BP 146/66
--- NOTE | 2019-05-11 13:57 | NUR ---
LONG-TERM HERE TO TAKE PATIENT. PT UP IN WHEELCHAIR . DC VIA WHEELCHAIR
[2019-05-31 06:09] LABS: FUNGUS MYCOLOGY CULTURE Final report (())
[2019-06-23 11:10] LABS: ACID FAST CULTURE Negative (()); ACID FAST SMEAR Negative (())
[2019-06-28 11:10] LABS: ACID FAST CULTURE Negative (()); ACID FAST SMEAR Negative (())
== END 2019-05-11 13:59 | DRG 167 ==
LOC: D.ER 18:08 → D.M2 20:50 → D.ER 21:09 → D.M2 05-11 13:59
PROVIDERS: Emergency Medicine; Family Medicine; Internal Medicine Pulmonary Disease; Legal Medicine; Specialist; ADMIT Family Medicine; ATTEND Family Medicine
PROC: 0B9L30Z Drainage of Left Lung with Drainage Device, Percutaneous Approach (ICD-10-PCS; principal; 2019-05-02 15:00)
PROC: 0B9J8ZX Drainage of Left Lower Lung Lobe, Via Natural or Artificial Opening Endoscopic, Diagnostic (ICD-10-PCS; 2019-05-03)
PROC: 0B9G8ZX Drainage of Left Upper Lung Lobe, Via Natural or Artificial Opening Endoscopic, Diagnostic (ICD-10-PCS; 2019-05-03)
DX: J85.1 Abscess of lung with pneumonia (principal); E87.1 Hypo-osmolality and hyponatremia; E44.1 Mild protein-calorie malnutrition; Z68.1 Body mass index [BMI] 19.9 or less, adult; D64.9 Anemia, unspecified; I10 Essential (primary) hypertension; J40 Bronchitis, not specified as acute or chronic; E87.6 Hypokalemia

== ENCOUNTER → 2019-06-12 07:25 | Outpatient (CLI) | payer MEDICARE, OTHER ==
[2019-05-04 12:55] VITALS: BMI 18.7
== END | disposition home or self-care (01) ==
LOC: D.CT 07:25
PROVIDERS: ATTEND Family Medicine
DX: J85.1 Abscess of lung with pneumonia (principal); J18.9 Pneumonia, unspecified organism